=== PATIENT | female | born 1965 | race Two or more races ===

== ENCOUNTER 2016-06-14 19:01 | Emergency (ER) | payer SELFPAY ==
[~2016-06-14] VITALS: Ht 152.4 cm; Wt 85.7 kg
[2016-06-14] MEDS ORDERED: hydrALAZINE 20 MG/ML VIAL. IVP ONE (20:00)
[2016-06-14 20:06] LABS: BASO # 0.1 x10^3/uL (0.0-0.2); BASO % 1 % (0-3); EOS % 3 % (0-3); HEMATOCRIT 44.9 % (36.0-47.0); LYMPH # 3.3 x10^3/uL (1.0-4.8); LYMPH % 37 % (24-48); MEAN CORPUSCULAR HEMOGLOBIN 30 pg (25-35); MEAN CORPUSCULAR HGB CONC 34 g/dL (31-37); MEAN CORPUSCULAR VOLUME 89 fL (79-100); MONO % 7 % (0-9); NEUT % 53 % (31-73); PLATELET COUNT 256 x10^3/uL (140-400); RED BLOOD COUNT 5.05 x10^6/uL (3.50-5.40); RED CELL DISTRIBUTION WIDTH 13.6 % (11.5-14.5); WHITE BLOOD COUNT 8.9 x10^3/uL (4.0-11.0)
[2016-06-14 20:06] LABS: BILIRUBIN,URINE NEGATIVE (NEG); GLUCOSE,URINE NEGATIVE (NEG); NITRITE,URINE NEGATIVE (NEG); PROTEIN,URINE NEGATIVE (NEG-TRACE); UROBILINOGEN,URINE 0.2 mg/dL (0.2 mg/dL)
[2016-06-14 20:15] LABS: CALCIUM 9.4 mg/dL (8.5-10.1); CREATININE 0.8 mg/dL (0.6-1.0); POTASSIUM 3.4 mmol/L (3.5-5.1)
[2016-06-14 20:19] LABS: BACTERIA,URINE FEW /HPF (0-FEW); RBC,URINE 0 /HPF (0-2); SQUAMOUS EPITHELIAL CELL,UR FEW /LPF; WBC,URINE 0 /HPF (0-4)
[2016-06-14 20:21] LABS: ALBUMIN 4.1 g/dL (3.4-5.0); ALBUMIN/GLOBULIN RATIO 0.9 (1.0-1.7); TOTAL BILIRUBIN 0.3 mg/dL (0.2-1.0); TOTAL PROTEIN 8.5 g/dL (6.4-8.2)
[2016-06-14 21:37] VITALS: BP 175/81
[2016-06-14] MEDS ORDERED: LISI10TA2 PO (21:45)
--- NOTE | 2016-06-14 21:45 | PHYS DOC ---
Past Medical History Past Medical History: High Cholesterol, Hypertension, Other Additional Past Medical Histor: pre diabetes Past Surgical History: No Surgical History Alcohol Use: None Drug Use: None Adult General Chief Complaint Chief Complaint: HYPERTENSION HPI HPI 51-year-old female presents with an elevated blood pressure. She denies any headache or neck pain chest pain shortness of breath or lateralizing neurologic weakness. She does state she is generally just felt weak. Her family states that she stopped taking her blood pressure medicine several months ago. She did try to take a dose of it today. [] Review of Systems Review of Systems Constitutional: Denies fever or chills [] Eyes: Denies change in visual acuity, redness, or eye pain [] HENT: Denies nasal congestion or sore throat [] Respiratory: Denies cough or shortness of breath [] Cardiovascular: No additional information not addressed in HPI [] GI: Denies abdominal pain, nausea, vomiting, bloody stools or diarrhea [] : Denies dysuria or hematuria [] Musculoskeletal: Denies back pain or joint pain [] Integument: Denies rash or skin lesions [] Neurologic: Denies headache, focal weakness or sensory changes [] Endocrine: Denies polyuria or polydipsia [] Current Medications Current Medications Current Medications Medications (Trade) Dose Ordered Sig/Raiza Start Time Stop Time Status Last Admin Dose Admin Hydralazine HCl (Apresoline) 10 mg 1X ONCE 06/14/16 20:00 06/14/16 20:01 DC 06/14/16 20:12 10 MG Allergies Allergies Allergies Coded Allergies Type Severity Reaction Last Updated Verified hydrocortisone Allergy Severe heart racing 06/14/16 Yes Physical Exam Physical Exam Constitutional: Well developed, well nourished, no acute distress, non-toxic appearance. [] HENT: Normocephalic, atraumatic, bilateral external ears normal, oropharynx moist, no oral exudates, nose normal. [] Eyes: PERRLA, EOMI, conjunctiva normal, no discharge. [] Neck: Normal range of motion, no tenderness, supple, no stridor. [] Cardiovascular:Heart rate regular rhythm, no murmur [] Lungs & Thorax: Bilateral breath sounds clear to auscultation [] Abdomen: Bowel sounds normal, soft, no tenderness, no masses, no pulsatile masses. [] Skin: Warm, dry, no erythema, no rash. [] Back: No tenderness, no CVA tenderness. [] Extremities: No tenderness, no cyanosis, no clubbing, ROM intact, no edema. [] Neurologic: Alert and oriented X 3, normal motor function, normal sensory function, no focal deficits noted. [] Psychologic: Affect normal, judgement normal, mood normal. [] Current Patient Data Vital Signs Vital Signs Date Time Temp Pulse Resp B/P Pulse Ox O2 Delivery O2 Flow Rate FiO2 06/14/16 20:12 232/112 06/14/16 19:48 70 18 99 Room Air 06/14/16 19:04 97.8 97.8 Lab Values Laboratory Tests Test 06/14/16 19:14 06/14/16 19:45 Urine Collection Type Unknown Urine Color Yellow Urine Clarity Clear Urine pH 7.0 Urine Specific [place] <=1.005 Urine Protein Negativemg/dL (NEG-TRACE) Urine Glucose (UA) Negativemg/dL (NEG) Urine Ketones (Stick) Negativemg/dL (NEG) Urine Blood Negative (NEG) Urine Nitrite Negative (NEG) Urine Bilirubin Negative (NEG) Urine Urobilinogen Dipstick 0.2mg/dL (0.2 mg/dL) Urine Leukocyte Esterase Negative (NEG) Urine RBC 0/HPF (0-2) Urine WBC 0/HPF (0-4) Urine Squamous Epithelial Cells Few/LPF Urine Bacteria Few/HPF (0-FEW) White Blood Count 8.9x10^3/uL (4.0-11.0) Red Blood Count 5.05x10^6/uL (3.50-5.40) Hemoglobin 15.0g/dL (12.0-15.5) Hematocrit 44.9% (36.0-47.0) Mean Corpuscular Volume 89fL (79-100) Mean Corpuscular Hemoglobin 30pg (25-35) Mean Corpuscular Hemoglobin Concent 34g/dL (31-37) Red Cell Distribution Width 13.6% (11.5-14.5) Platelet Count 256x10^3/uL (140-400) Neutrophils (%) (Auto) 53% (31-73) Lymphocytes (%) (Auto) 37% (24-48) Monocytes (%) (Auto) 7% (0-9) Eosinophils (%) (Auto) 3% (0-3) Basophils (%) (Auto) 1% (0-3) Neutrophils # (Auto) 4.7x10^3uL (1.8-7.7) Lymphocytes # (Auto) 3.3x10^3/uL (1.0-4.8) Monocytes # (Auto) 0.6x10^3/uL (0.0-1.1) Eosinophils # (Auto) 0.3x10^3/uL (0.0-0.7) Basophils # (Auto) 0.1x10^3/uL (0.0-0.2) Sodium Level 147mmol/L (136-145) H Potassium Level 3.4mmol/L (3.5-5.1) L Chloride Level 107mmol/L (98-107) Carbon Dioxide Level 29mmol/L (21-32) Anion Gap 11 (6-14) Blood Urea Nitrogen 14mg/dL (7-20) Creatinine 0.8mg/dL (0.6-1.0) Estimated GFR (Cockcroft-Gault) 75.0 BUN/Creatinine Ratio 18 (6-20) Glucose Level 125mg/dL (70-99) H Calcium Level 9.4mg/dL (8.5-10.1) Total Bilirubin 0.3mg/dL (0.2-1.0) Aspartate Amino Transferase (AST) 33U/L (15-37) Alanine Aminotransferase (ALT) 37U/L (14-59) Alkaline Phosphatase 134U/L (46-116) H Total Protein 8.5g/dL (6.4-8.2) H Albumin 4.1g/dL (3.4-5.0) Albumin/Globulin Ratio 0.9 (1.0-1.7) L Laboratory Tests 06/14/16 19:45 Laboratory Tests 06/14/16 19:45 EKG EKG EKG normal sinus rhythm rate of [address]-T changes [] Radiology/Procedures Radiology/Procedures [] Course & Med Decision Making Course & Med Decision Making Pertinent Labs and Imaging studies reviewed. (See chart for details) [] ED course: Evaluation reveals a 51-year-old female in no distress. She was given 10 mg of hydralazine IV and over the course of about 90 minutes her blood pressure went from 2:30 systolic 250 systolic and the patient stated she felt much better. Patient is stable for discharge home Dragon Disclaimer Dragon Disclaimer This electronic medical record was generated, in whole or in part, using a voice recognition dictation system. Departure Departure Impression: Primary Impression: Hypertension Disposition: 01 HOME, SELF-CARE Condition: STABLE Referrals: NO PCP (PCP) Patient Instructions: Hypertension Additional Instructions: Follow with family doctor this week for recheck return to emergency department with any new or concerning symptoms Scripts Lisinopril 10 Mg Tablet1 Tab PO DAILY hypertension #30 TAB Ref 5 Prov:KHUSHBOO CASTELLON DO 06/14/16 Problem Qualifiers Primary Impression: Hypertension Hypertension type: essential hypertension Qualified Code: I10 - Essential ( primary) hypertension KHUSHBOO CASTELLON DO Jun 14, 2016 21:45
--- NOTE | 2016-06-15 06:47 | EKG ---
[facility] [address] [place] [address] Test Date: 2016-06-14 Test Time: 19:56:20 Pat Name: MUKUL SHAFFER Department: Room: Gender: Female Patient Monitor: : 1965 Requested By: KHUSHBOO CASTELLON Order Number: [id number] Reading MD: Christina Camarillo Measurements Intervals [place] Rate: 76 P: 41 MA: 144 QRS: 3 QRSD: 90 T: 38 QT: 366 QTc: 416 Interpretive Statements SINUS RHYTHM NORMAL ECG RI6.01 Unconfirmed report Compared to ECG 02/20/2012 16:40:16 No significant changes Electronically Signed On 06-17-2016 19:54:36 CDT by Christina Camarillo
== END 2016-06-14 21:52 | disposition home or self-care (01) ==
LOC: ER 19:01
DX: I10 Essential (primary) hypertension (principal); E78.00 Pure hypercholesterolemia, unspecified; Z88.8 Allergy status to other drugs, medicaments and biological substances
CPT/HCPCS: 36415; 80053; 81001; 85027; 93005; 96374; 99285; J0360

== ENCOUNTER 2018-11-07 09:04 | Emergency (ER) | payer SELFPAY ==
[~2018-11-07] VITALS: Ht 144.8 cm; Wt 83.0 kg
[~2018-11-07 09:04] MED LIST: LISI10TA2 PO
[2018-11-07 09:59] LABS: BASO % 1 % (0-3); EOS # 0.1 x10^3/uL (0.0-0.7); EOS % 2 % (0-3); HEMATOCRIT 46.4 % (36.0-47.0); HEMOGLOBIN 15.9 g/dL (12.0-15.5); LYMPH # 2.4 x10^3/uL (1.0-4.8); LYMPH % 29 % (24-48); MEAN CORPUSCULAR HEMOGLOBIN 30 pg (25-35); MEAN CORPUSCULAR HGB CONC 34 g/dL (31-37); MEAN CORPUSCULAR VOLUME 88 fL (79-100); MONO # 0.5 x10^3/uL (0.0-1.1); MONO % 6 % (0-9); NEUT # 5.2 x10^3/uL (1.8-7.7); NEUT % 63 % (31-73); PLATELET COUNT 249 x10^3/uL (140-400); RED BLOOD COUNT 5.26 x10^6/uL (3.50-5.40); RED CELL DISTRIBUTION WIDTH 14.2 % (11.5-14.5); WHITE BLOOD COUNT 8.2 x10^3/uL (4.0-11.0)
[2018-11-07] MEDS ORDERED: ONDANSETRON PF 4 MG/2 ML VIAL. IV ONE (10:00)
[2018-11-07 10:01] LABS: BILIRUBIN,URINE NEGATIVE (NEG); CLARITY,URINE CLEAR; COLOR,URINE YELLOW; NITRITE,URINE NEGATIVE (NEG); PROTEIN,URINE NEGATIVE (NEG-TRACE); UROBILINOGEN,URINE 0.2 mg/dL (0.2 mg/dL)
[2018-11-07 10:03] LABS: CALCIUM 9.3 mg/dL (8.5-10.1); CREATININE 0.8 mg/dL (0.6-1.0); GFR 74.5; POTASSIUM 3.7 mmol/L (3.5-5.1)
[2018-11-07 10:09] LABS: ALBUMIN 3.9 g/dL (3.4-5.0); ALBUMIN/GLOBULIN RATIO 0.8 (1.0-1.7); TOTAL BILIRUBIN 0.5 mg/dL (0.2-1.0); TOTAL PROTEIN 8.6 g/dL (6.4-8.2)
--- NOTE | 2018-11-07 10:09 | PHYS DOC ---
Past Medical History Past Medical History: High Cholesterol, Hypertension, Other Additional Past Medical Histor: pre diabetes Past Surgical History: No Surgical History Alcohol Use: None Drug Use: None Adult General Chief Complaint Chief Complaint: WEAKNESS/GENERALIZED HPI HPI Patient is a 53 year old female female who presents with generalized fatigue, malaise and nausea. Symptom onset was yesterday. Patient denies headache, blurred vision, chest pain, palpitations, shortness of breath, cough, abdominal pain, urinary frequency urgency or dysuria. No flank pain, diarrhea. No medications or therapy sticking prior to ED arrival. Patient noted to be hypertensive 190s over 90s. Patient states she has not taken her blood pressure medications for the past 2 days. Patient has not been evaluated for her complaint prior to today's ED visit. [] Review of Systems Review of Systems Review symptoms as per history of present illness. All other review symptoms are negative. All other systems were reviewed and found to be within normal limits, except as documented in this note. Current Medications Current Medications Current Medications Medications (Trade) Dose Ordered Sig/Raiza Start Time Stop Time Status Last Admin Dose Admin Ondansetron HCl (Zofran) 4 mg 1X ONCE 11/07/18 10:00 11/07/18 10:01 DC 11/07/18 09:54 4 MG Allergies Allergies Allergies Coded Allergies Type Severity Reaction Last Updated Verified hydrocortisone Allergy Severe heart racing 06/14/16 Yes Physical Exam Physical Exam Constitutional: Well developed, well nourished, no acute distress, non-toxic appearance. [] HENT: Normocephalic, atraumatic, bilateral external ears normal, oropharynx moist, nose normal. [] Eyes: PERRLA, EOMI, conjunctiva normal. [] Neck: Normal range of motion, no tenderness. [] Cardiovascular:Heart rate regular rhythm. [] Lungs & Thorax: Bilateral breath sounds clear to auscultation. [] Abdomen: Bowel sounds normal, soft, no tenderness. [] Skin: Warm, dry. [] Back: No tenderness, no CVA tenderness. [] Extremities: No tenderness, no edema. [] Neurologic: Alert and oriented X 3, normal motor function, normal sensory function, no focal deficits noted. [] Psychologic: Affect normal, judgement normal, mood normal. [] Current Patient Data Vital Signs Vital Signs Date Time Temp Pulse Resp B/P (MAP) Pulse Ox O2 Delivery O2 Flow Rate FiO2 11/07/18 10:00 76 18 98 11/07/18 09:26 98.1 194/88 (123) Room Air 98.1 Lab Values Laboratory Tests Test 11/07/18 09:35 White Blood Count 8.2 x10^3/uL (4.0-11.0) Red Blood Count 5.26 x10^6/uL (3.50-5.40) Hemoglobin 15.9 g/dL (12.0-15.5) H Hematocrit 46.4 % (36.0-47.0) Mean Corpuscular Volume 88 fL (79-100) Mean Corpuscular Hemoglobin 30 pg (25-35) Mean Corpuscular Hemoglobin Concent 34 g/dL (31-37) Red Cell Distribution Width 14.2 % (11.5-14.5) Platelet Count 249 x10^3/uL (140-400) Neutrophils (%) (Auto) 63 % (31-73) Lymphocytes (%) (Auto) 29 % (24-48) Monocytes (%) (Auto) 6 % (0-9) Eosinophils (%) (Auto) 2 % (0-3) Basophils (%) (Auto) 1 % (0-3) Neutrophils # (Auto) 5.2 x10^3/uL (1.8-7.7) Lymphocytes # (Auto) 2.4 x10^3/uL (1.0-4.8) Monocytes # (Auto) 0.5 x10^3/uL (0.0-1.1) Eosinophils # (Auto) 0.1 x10^3/uL (0.0-0.7) Basophils # (Auto) 0.0 x10^3/uL (0.0-0.2) Urine Collection Type Unknown Urine Color Yellow Urine Clarity Clear Urine pH 6.0 Urine Specific [place] 1.010 Urine Protein Negative mg/dL (NEG-TRACE) Urine Glucose (UA) Negative mg/dL (NEG) Urine Ketones (Stick) Negative mg/dL (NEG) Urine Blood Negative (NEG) Urine Nitrite Negative (NEG) Urine Bilirubin Negative (NEG) Urine Urobilinogen Dipstick 0.2 mg/dL (0.2 mg/dL) Urine Leukocyte Esterase Negative (NEG) Urine RBC 0 /HPF (0-2) Urine WBC Occ /HPF (0-4) Urine Squamous Epithelial Cells Many /LPF Urine Bacteria 0 /HPF (0-FEW) Sodium Level 138 mmol/L (136-145) Potassium Level 3.7 mmol/L (3.5-5.1) Chloride Level 99 mmol/L (98-107) Carbon Dioxide Level 27 mmol/L (21-32) Anion Gap 12 (6-14) Blood Urea Nitrogen 10 mg/dL (7-20) Creatinine 0.8 mg/dL (0.6-1.0) Estimated GFR (Cockcroft-Gault) 74.5 BUN/Creatinine Ratio 13 (6-20) Glucose Level 168 mg/dL (70-99) H Calcium Level 9.3 mg/dL (8.5-10.1) Total Bilirubin 0.5 mg/dL (0.2-1.0) Aspartate Amino Transferase (AST) 71 U/L (15-37) H Alanine Aminotransferase (ALT) 104 U/L (14-59) H Alkaline Phosphatase 128 U/L (46-116) H Troponin I Quantitative < 0.017 ng/mL (0.000-0.055) Total Protein 8.6 g/dL (6.4-8.2) H Albumin 3.9 g/dL (3.4-5.0) Albumin/Globulin Ratio 0.8 (1.0-1.7) L Thyroid Stimulating Hormone (TSH) 2.082 uIU/mL (0.358-3.74) Heterophil Agglutinins Negative (NEGATIVE) Laboratory Tests 11/07/18 09:35 Laboratory Tests 11/07/18 09:35 EKG EKG [EKG: Reviewed] Course & Med Decision Making Course & Med Decision Making Pertinent Labs and Imaging studies reviewed. (See chart for details) [[Patient's labs reviewed. Blood sugar is moderately elevated, patient states she has been previously diagnosed with pre-diabetes and was placed on an oral hypoglycemic only to be taken off a short time later. Patient does not remember why she was taken off diabetic medications. Nausea resolved while in the emergency department. Patient instructed to resume blood pressure medications upon returning home. Will continue supportive treatment with PCP follow-up. Term precautions reviewed. Patient verbalizes understanding agreement discharge instructions prior to departure]] Dragon Disclaimer Dragon Disclaimer This electronic medical record was generated, in whole or in part, using a voice recognition dictation system. Departure Departure Impression: Primary Impression: Hypertension Additional Impressions: Nausea Fatigue Disposition: ADMITTED INPATIENT Condition: IMPROVED Referrals: NO PCP (PCP) Patient Instructions: Arterial Hypertension, Fatigue, Nausea, Adult, Iekv-[id number] Additional Instructions: Please take nausea medication as directed and resume home blood pressure medications. Take next dose of blood pressure upon returning home. Follow-up with PCP in the next 1-2 office days. Return to the ED if new or worsening symptoms. Scripts Ondansetron Hcl (ZOFRAN) 4 Mg Tablet 1 TAB PO Q6HRS, #10 TAB 0 Refills Prov: KAREN GROVER DO 11/07/18 Problem Qualifiers KAREN GROVER DO Nov 07, 2018 10:09
[2018-11-07 10:17] LABS: BACTERIA,URINE 0 /HPF (0-FEW); RBC,URINE 0 /HPF (0-2); SQUAMOUS EPITHELIAL CELL,UR MANY /LPF; WBC,URINE OCC /HPF (0-4)
--- NOTE | 2018-11-07 10:35 | EKG ---
[facility] [address] [place] [address] Test Date: 2018-11-07 Test Time: 09:49:18 Pat Name: MUKUL SHAFFER Department: Room: Gender: F [employer]: : 1965 Requested By: KAREN GROVER Order Number: [id number] Reading MD: Measurements Intervals [place] Rate: 73 P: 39 SD: 146 QRS: -2 QRSD: 84 T: 30 QT: 382 QTc: 424 Interpretive Statements SINUS RHYTHM LEFTWARD AXIS QRS(T) CONTOUR ABNORMALITY CONSIDER ANTEROSEPTAL MYOCARDIAL DAMAGE POSSIBLY ABNORMAL ECG RI6.01 Unconfirmed report No previous ECG available for comparison
[2018-11-07 11:26] LABS: MONONUCLEOSIS PATIENT NEGATIVE (NEGATIVE)
[2018-11-07] MEDS ORDERED: ONDA4TAB7 PO (11:49)
[2018-11-07 11:58] VITALS: BP 141/66
== END 2018-11-07 12:00 | disposition home or self-care (01) ==
LOC: ER 09:04
DX: I10 Essential (primary) hypertension (principal); R53.83 Other fatigue; R11.0 Nausea; E78.00 Pure hypercholesterolemia, unspecified; Z88.8 Allergy status to other drugs, medicaments and biological substances
CPT/HCPCS: 36415; 80053; 81001; 84443; 84484; 85025; 86308; 93005; 96374; 99285; J2405

== ENCOUNTER 2021-01-15 08:15 | Emergency (ER) | payer SELFPAY ==
[~2021-01-15] VITALS: Ht 152.4 cm; Wt 76.1 kg
[~2021-01-15 08:15] MED LIST changes: +LISI10TA16 PO; -LISI10TA2 PO; +ONDA4TAB7 PO
--- NOTE | 2021-01-15 08:41 | PHYS DOC ---
Past Medical History Past Medical History: High Cholesterol, Hypertension, Other Additional Past Medical Histor: pre diabetes Past Surgical History: No Surgical History Smoking Status: Never Smoker Alcohol Use: None Drug Use: None General Adult EDM: Chief Complaint: DIZZY/LIGHT HEADED HPI: HPI: 55-year-old female presents with report of sudden onset of dizziness this morning at approximately 0600. Patient also reports associated nausea and vomiting x1 episode. Patient reports dizziness as "room is spinning ". Denies prior history of vertigo. Denies fever or chills. Denies neck pain. Denies trauma. Denies chest pain. Review of Systems: Review of Systems: Constitutional: Denies fever or chills Eyes: Denies redness or eye pain HENT: Denies nasal congestion or sore throat Respiratory: Denies cough or shortness of breath Cardiovascular: Denies chest pain or palpitations GI: Denies abdominal pain; reports nausea and vomiting : Denies dysuria or hematuria Musculoskeletal: Denies back pain or joint pain Integument: Denies rash or skin lesions Neurologic: Denies headache, focal weakness or sensory changes; reports dizziness Complete systems were reviewed and found to be within normal limits, except as documented in this note. Heart Score: C/O Chest Pain: N/A Allergies: Allergies: Allergies Coded Allergies Type Severity Reaction Last Updated Verified hydrocortisone Allergy Severe heart racing 01/15/21 Yes shrimp Allergy Severe swelling 01/15/21 Yes Physical Exam: PE: Constitutional: Well developed, well nourished, no acute distress, non-toxic appearance HENT: Normocephalic, atraumatic Eyes: PERRL, EOMI, conjunctiva normal, no discharge, horizontal nystagmus noted looking left Neck: Normal range of motion, no midline tenderness, supple Lungs & Thorax: No respiratory distress, equal chest rise and fall Abdomen: Soft, no tenderness Skin: Warm, dry, no erythema, no rash Extremities: No tenderness, ROM intact, no edema Neurologic: Alert and oriented X 3, normal motor function, normal sensory function, no focal deficits noted Psychologic: Affect normal, judgment normal EKG: EKG: @0828 Sinus bradycardia at 54bpm, NO ST elevation, QRS 90ms, QT/QTc 432/411ms, some baseline artifact noted in I-III Radiology/Procedures: Radiology/Procedures: PROCEDURE: CT HEAD WO CONTRAST CT HEAD/BRAIN WO dated 01/15/2021 8:58 AM. Comparison: None. Clinical Indication: Reason: dizziness / Spl. Instructions: / History: Technical factors: Contiguous 5 mm axial images of the head were obtained from the skullbase to the vertex. No contrast was administered. Findings: There is no apparent intracranial mass, hemorrhage or abnormal extra-axial fluid collection. No area of abnormal density is seen. The ventricles and basilar cisterns are normally positioned. The sinuses and mastoid air cells appear clear. Impression: No evidence of acute intracranial abnormality. Electronically signed by: Jun Cote Jr., MD (01/15/2021 9:04 AM) [id number] Course & Med Decision Making: Course & Med Decision Making Pertinent Labs and Imaging studies reviewed. (See chart for details) Patient presents with HPI and physical exam concerning for vertigo. Horizontal nystagmus noted. No history of trauma. Patient otherwise neurologically intact. CT head without acute process. EKG stable. Labs obtained and posted to chart. Patient noted to have elevated blood pressure. Patient reports did not take her blood pressure medication prior to arrival due to her nausea. Blood pressure addressed with interval improvement. Symptomatic treatment provided. IV fluid hydration given. Patient stable for discharge with outpatient follow-up with PCP. Discussed findings and plan with patient and family, who acknowledge understanding and agreement. Malgorzata Disclaimer: Malgorzata Disclaimer: This electronic medical record was generated, in whole or in part, using a voice recognition dictation system. Departure Departure Impression: Primary Impression: Vertigo Additional Impression: Hypertension Qualified Codes: I10 - Essential (primary) hypertension Disposition: HOME / SELF CARE / HOMELESS Condition: STABLE Referrals: NO PCP (PCP) BIBIANA CONNER MD Patient Instructions: Hypertension, Xfto-mi-Bygo, Vertigo, [id number] Scripts Meclizine Hcl (MECLIZINE HCL) 25 Mg Tablet 1 TAB PO Q8HRS PRN for dizziness, #30 TAB Prov: DELORES SILVA DO 01/15/21 Ondansetron (ONDANSETRON ODT) 4 Mg Tab.rapdis 1 TAB PO PRN Q6-8HRS PRN for NAUSEA, #16 TAB Prov: DELORES SILVA DO 01/15/21 DELORES SILVA DO Jan 15, 2021 08:41
[2021-01-15 08:44] LABS: BASO # 0.1 x10^3/uL (0.0-0.2); BASO % 1 % (0-3); EOS # 0.2 x10^3/uL (0.0-0.7); EOS % 3 % (0-3); HEMATOCRIT 44.6 % (36.0-47.0); HEMOGLOBIN 15.2 g/dL (12.0-15.5); LYMPH # 2.4 x10^3/uL (1.0-4.8); LYMPH % 31 % (24-48); MEAN CORPUSCULAR HEMOGLOBIN 30 pg (25-35); MEAN CORPUSCULAR HGB CONC 34 g/dL (31-37); MEAN CORPUSCULAR VOLUME 89 fL (79-100); MONO # 0.3 x10^3/uL (0.0-1.1); MONO % 4 % (0-9); NEUT # 4.6 x10^3/uL (1.8-7.7); NEUT % 61 % (31-73); PLATELET COUNT 248 x10^3/uL (140-400); RED BLOOD COUNT 5.02 x10^6/uL (3.50-5.40); RED CELL DISTRIBUTION WIDTH 13.3 % (11.5-14.5); WHITE BLOOD COUNT 7.6 x10^3/uL (4.0-11.0)
[2021-01-15] MEDS ORDERED: IV NORMAL SALINE 1000ML BAG 1,000 ML IV ONE (08:45)
[2021-01-15] MEDS ORDERED: MECLIZINE HCL 12.5 MG TABLET. PO ONE (08:45)
[2021-01-15 08:57] LABS: CREATININE 0.8 mg/dL (0.6-1.0); GFR 73.9; POTASSIUM 3.5 mmol/L (3.5-5.1)
[2021-01-15 09:03] LABS: ALBUMIN/GLOBULIN RATIO 0.9 (1.0-1.7); MAGNESIUM 2.2 mg/dL (1.8-2.4); TOTAL BILIRUBIN 0.4 mg/dL (0.2-1.0); TOTAL PROTEIN 8.5 g/dL (6.4-8.2)
--- NOTE | 2021-01-15 09:06 | RAD ---
CT HEAD/BRAIN WO dated 01/15/2021 8:58 AM. Comparison: None. Clinical Indication: Reason: dizziness / Spl. Instructions: / History: Technical factors: Contiguous 5 mm axial images of the head were obtained from the skullbase to the vertex. No contrast was administered. Findings: There is no apparent intracranial mass, hemorrhage or abnormal extra-axial fluid collection. No area of abnormal density is seen. The ventricles and basilar cisterns are normally positioned. The sinuses and mastoid air cells appear clear. Impression: No evidence of acute intracranial abnormality. Electronically signed by: Jun Cote Jr., MD (01/15/2021 9:04 AM) [id number]
[2021-01-15 09:30] LABS: BILIRUBIN,URINE NEGATIVE (NEG); CLARITY,URINE CLEAR; COLOR,URINE YELLOW; NITRITE,URINE NEGATIVE (NEG); PROTEIN,URINE 30 mg/dL (NEG-TRACE); UROBILINOGEN,URINE 0.2 mg/dL (0.2 mg/dL)
[2021-01-15] MEDS ORDERED: hydrALAZINE 20 MG/ML VIAL. IVP ONE (09:30)
[2021-01-15] MEDS ORDERED: ONDANSETRON PF 4 MG/2 ML VIAL. IVP ONE (09:30)
[2021-01-15 09:41] LABS: BACTERIA,URINE 0 /HPF (0-FEW); RBC,URINE 0 /HPF (0-2); WBC,URINE RARE /HPF (0-4)
[2021-01-15] MEDS ORDERED: ONDA4TAB12 PO (09:56)
[2021-01-15] MEDS ORDERED: MECL-75 PO (09:56)
[2021-01-15 10:23] VITALS: BP 164/70
--- NOTE | 2021-01-15 16:54 | EKG ---
[facility] [address] [place] [address] Test Date: 2021-01-15 Test Time: 08:28:15 Pat Name: MUKUL SHAFFER Department: Room: Gender: F [employer]: : 1965 Requested By: DELORES SILVA Order Number: [id number] Reading MD: Jose Lenz MD Measurements Intervals [place] Rate: 54 P: 34 [place]: 150 QRS: 5 QRSD: 90 T: 38 QT: 432 QTc: 411 Interpretive Statements SINUS RHYTHM Electronically Signed On 01-17-2021 10:36:28 CDT by Jose Lenz MD
== END 2021-01-15 11:02 | disposition home or self-care (01) ==
LOC: ER 08:15
DX: I10 Essential (primary) hypertension (principal); R42 Dizziness and giddiness; R11.2 Nausea with vomiting, unspecified; E78.00 Pure hypercholesterolemia, unspecified; Z88.5 Allergy status to narcotic agent; Z91.013 Allergy to seafood
CPT/HCPCS: 36415; 70450; 80053; 81001; 82553; 83735; 84484; 85025; 93005; 96361; 96374; 96375; 99285; J0360; J2405; J7030